=== PATIENT | female | born 1950 | race Caucasian/White ===

== ENCOUNTER → 2020-07-30 10:07 | Outpatient (BNVA) | payer MEDICARE, SELFPAY | PROVIDERS: Family Provider Family Medicine; PCP Family Medicine; Visit Provider Family Medicine | DX: I10 Essential (primary) hypertension (principal) | CPT/HCPCS: 80048; 85025 ==

== ENCOUNTER → 2022-01-13 11:54 | Outpatient (BNVA) | payer MEDICARE, SELFPAY | PROVIDERS: Family Provider Family Medicine; PCP Family Medicine; Visit Provider Family Medicine | DX: I10 Essential (primary) hypertension (principal); N28.9 Disorder of kidney and ureter, unspecified; E03.9 Hypothyroidism, unspecified; M19.90 Unspecified osteoarthritis, unspecified site; I48.20 Chronic atrial fibrillation, unspecified; J44.9 Chronic obstructive pulmonary disease, unspecified; F17.210 Nicotine dependence, cigarettes, uncomplicated; Z68.23 Body mass index [BMI] 23.0-23.9, adult | CPT/HCPCS: 80053; 84443; 85025 ==

== ENCOUNTER 2022-06-05 16:57 | Inpatient (IN) | payer MEDICARE, SELFPAY ==
[2022-06-05] VITALS (8 sets, daily range): BP systolic 115–159; BP diastolic 73–102; PULSE 104–129; RESP 19–22; TEMP 37.2; O2SAT 87–98; BMI 20.7
--- NOTE | 2022-06-05 17:10 | W.ED.SOB ---
Documented by User: Lopez Ellis MD 06/16/22 22:00 HPI - SOB/Dyspnea General: Chief Complaint: COVID symptoms Stated Complaint: SOB, Weakness, Fever N/V/D Time Seen by Provider: 06/05/22 17:09 History of Present Illness: HPI Narrative: Ms. Martel is a 71-year-old lady with significant past medical history of COPD, chronic atrial fibrillation, chronic hypoxic respiratory failure on baseline oxygen intermittently who presents to the emergency department due to shortness of breath and generalized symptoms. She reports sick contacts at approximately 2 weeks ago her family got ill with somewhat typical COVID type symptoms. She has failed to recover. She endorses body aches, fevers, cough, shortness of breath, diarrhea, and generalized malaise. Intensity of symptoms is moderate. Course has persisted. No other specific changes in health, exacerbating, or alleviating factors identified. Onset (ago): week(s) Context: recent illness Timing: constant Severity: moderate Known history of: COPD Review of Systems General: Reports: 10 or more systems reviewed and unremarkable except in HPI and below PFSH ED PFSH: Medical History (Updated 06/16/22 @ 12:41 by Ezio Espinoza MD) Aortic stenosis, moderate Chronic atrial fibrillation COPD (chronic obstructive pulmonary disease) Hypercholesteremia Hypertension Hypoxia Iron deficiency anemia Osteoarthritis (arthritis due to wear and tear of joints) Renal insufficiency Surgical History History of cholecystectomy History of oophorectomy History of total hysterectomy Family History Other Diabetes Social History Smoking and tobacco status: current every day smoker Alcohol intake: never Physical Exam Const: COMMON NORMALS: alert GENERAL APPEARANCE: cooperative, well developed and frail appearing HENMT: COMMON NORMALS: normocephalic and atraumatic HEAD & SCALP: normocephalic and atraumatic Eye: COMMON NORMALS: conjunctivae normal CONJUNCTIVA: Yes conjunctivae normal SCLERA: sclerae normal Neck/C-Spine: COMMON NORMALS: supple GENERAL: Yes trachea midline Resp: EFFORT & INSPECTION: Yes tachypneic AUSCULTATION: diminished lung sounds Cardio: COMMON NORMALS: regular rate and regular rhythm RATE: regular rate RHYTHM: regular rhythm GI: COMMON NORMALS: Soft to palpation PALPATION: Yes Soft to palpation and No Tenderness to palpation present (GI) Extremity: GENERAL: Yes normal exam except as noted and No edema Neuro: COMMON NORMALS: moves all extremities SENSORIUM/ORIENTATION: Yes alert and No Orientation impaired Psych: COMMON NORMALS: mental status grossly normal and Normal thought process present THOUGHT PROCESS: Normal thought process present Course ED course: - Patient was seen and evaluated by me at bedside - Patient placed on cardiac monitors, IV access obtained - Initial evaluation notable for exam as above - Labs and xrays personally interpreted by me -COPD exacerbation treatment ordered - Labs notable for no leukocytosis, near baseline normocytic anemia. Metabolic panel with dehydration and hypokalemia. Viral studies pending. - Imaging notable for right upper lobe pneumonia, no pneumothorax. -Antibiotic ordered. Handed off pending completion of ED evaluation with likely plan to admit Vital Signs: Vital signs: Vital Signs Temperature 98.0 F 06/08/22 14:30 Pulse Rate 55 L 06/08/22 14:30 Respiratory Rate 16 06/08/22 14:30 Blood Pressure 118/64 06/08/22 14:30 Pulse Oximetry 93 06/08/22 14:30 Oxygen Delivery Or thod 06/08/22 12:00 Oxygen Flow Rate 2 06/08/22 11:03 MDM - SOB/Dyspnea Medical Decision Making 71-year-old lady with history of COPD presenting with worsening respiratory symptoms and positive sick contacts. End off pending completion of ED evaluation. Patient presents here with shortness of breath was found to have a pneumonia along with COVID she has chronic history of COPD requiring quietly more oxygen than typical will admit at this time patient has been stable while in the ER. Medical Records I reviewed the patient's medical records. Lab Data I reviewed the patient's lab results. : 06/08/22 06:25 06/08/22 06:25 Labs/Radiology: Radiology Impressions Chest X-Ray 06/05/22 17:16 IMPRESSION: 1. Right upper lobe pneumonia. 2. Otherwise negative examination Laboratory Results WBC 4.9 10^3/uL (4.0-10.0) 06/05/22 17:50 RBC 3.63 10^6/uL (4.1-5.3) L 06/05/22 17:50 Hgb 10.7 g/dL (11.5-15.3) L 06/05/22 17:50 Hct 33.4 % (37.0-47.0) L 06/05/22 17:50 MCV 92.0 fl (81-99) 06/05/22 17:50 MCH 29.5 pg (28.0-34.0) 06/05/22 17:50 MCHC 32.0 g/dL (30.0-36.0) 06/05/22 17:50 RDW 15.2 % (12.1-15.1) H 06/05/22 17:50 Plt Count 273 10^3/cmm (130-400) 06/05/22 17:50 MPV 9.5 fL (7.4-10.4) 06/05/22 17:50 Neut % (Auto) 64.5 % 06/05/22 17:50 Lymph % (Auto) 26.3 % 06/05/22 17:50 Powell % (Auto) 7.8 % 06/05/22 17:50 Eos % (Auto) 0.6 % 06/05/22 17:50 Baso % (Auto) 0.2 % 06/05/22 17:50 Neut # (Auto) 3.14 10^3/uL (1.8-7.7) 06/05/22 17:50 Lymph # (Auto) 1.3 10^3/uL (0.8-4.8) 06/05/22 17:50 Powell # (Auto) 0.4 10^3/uL (0.2-0.9) 06/05/22 17:50 Eos # (Auto) 0.0 10^3/uL (0.0-0.8) 06/05/22 17:50 Baso # (Auto) 0.0 10^3/uL (0.0-0.1) 06/05/22 17:50 Nucleated RBC % (auto) 0 % 06/05/22 17:50 Nucleated RBCs # 0.0 /100WBC 06/05/22 17:50 Sodium 139 mmol/L (136-145) 06/05/22 17:50 Potassium 3.0 mmol/L (3.5-5.1) L 06/05/22 17:50 Chloride 102 mmol/L (98-107) 06/05/22 17:50 Carbon Dioxide 23 mmol/L (22-29) 06/05/22 17:50 Anion Gap 17.0 (5-19) 06/05/22 17:50 BUN 19 mg/dL (8-23) 06/05/22 17:50 Creatinine 1.3 mg/dL (0.5-0.9) H 06/05/22 17:50 GFR Calculation 40.6 mL/min (90-130) L 06/05/22 17:50 Glucose 103 mg/dL (65-115) 06/05/22 17:50 Estimat Average Glucose 120 06/05/22 17:50 Hemoglobin A1c 5.8 % (4.0-6.0) 06/05/22 17:50 Calculated Osmolality 291 mOsm/kg (285-295) 06/05/22 17:50 Lactate 1.6 mmol/L (0.5-2.2) 06/05/22 17:50 Calcium 8.4 mg/dL (8.5-10.5) L 06/05/22 17:50 Total Bilirubin 0.2 mg/dL (0.15-1.2) 06/05/22 17:50 AST 21 U/L (0-32) 06/05/22 17:50 ALT 9 U/L (0-33) 06/05/22 17:50 Alkaline Phosphatase 84 U/L (35-105) 06/05/22 17:50 C-Reactive Protein 60.9 mg/L (0.0-4.9) H 06/05/22 17:50 NT-Pro-B Natriuret Pep 2012 pg/mL (0-125) H 06/05/22 17:50 Total Protein 7.9 g/dL (6.6-8.7) 06/05/22 17:50 Albumin 3.6 g/dL (3.5-5.2) 06/05/22 17:50 Globulin 4.3 g/dL (1.3-4.6) 06/05/22 17:50 Procalcitonin 0.23 ng/mL (0-0.5) 06/05/22 17:50 Procalcitonin 0.24 ng/mL (0-0.5) 06/05/22 17:50 TSH 1.26 uIU/mL (0.27-4.20) 06/05/22 17:50 SARS-CoV-2 Ag (Rapid) Positive (Negative) H 06/05/22 17:50 Discharge Plan Discharge Patient Disposition: Admitted As Inpatient Admit Provider: Jeferson Killian Clinical Impression: Acute exacerbation of chronic obstructive pulmonary disease, Close exposure to severe acute respiratory syndrome coronavirus 2 (SARS-CoV-2), Pneumonia, Acute on chronic respiratory failure with hypoxia Condition: Stable Discharge Diet: Cardiac Discharge Activity: Increase activity as tolerated and Oxygen as instructed Coding Level of Care Code ED Dispute Resolution Analyst for [facility] Fwd Exam Comprehensive Documented by User: Trevin Foster MD 06/05/22 19:17 HPI - SOB/Dyspnea General: Chief Complaint: COVID symptoms Stated Complaint: SOB, Weakness, Fever N/V/D Time Seen by Provider: 06/05/22 17:09 [facility] ED PFSH: Medical History (Updated 06/16/22 @ 12:41 by Ezio Espinoza MD) Aortic stenosis, moderate Chronic atrial fibrillation COPD (chronic obstructive pulmonary disease) Hypercholesteremia Hypertension Hypoxia Iron deficiency anemia Osteoarthritis (arthritis due to wear and tear of joints) Renal insufficiency Surgical History History of cholecystectomy History of oophorectomy History of total hysterectomy Family History Other Diabetes Social History Smoking and tobacco status: current every day smoker Alcohol intake: never Course Vital Signs: Vital signs: Vital Signs Temperature 98.0 F 06/08/22 14:30 Pulse Rate 55 L 06/08/22 14:30 Respiratory Rate 16 06/08/22 14:30 Blood Pressure 118/64 06/08/22 14:30 Pulse Oximetry 93 06/08/22 14:30 Oxygen Delivery Me thod 06/08/22 12:00 Oxygen Flow Rate 2 06/08/22 11:03 MDM - SOB/Dyspnea Medical Decision Making Patient presents here with shortness of breath was found to have a pneumonia along with COVID she has chronic history of COPD requiring quietly more oxygen than typical will admit at this time patient has been stable while in the ER. Lab Data : 06/08/22 06:25 06/08/22 06:25 Labs/Radiology: Radiology Impressions Chest X-Ray 06/05/22 17:16
--- NOTE | 2022-06-05 17:16 | XRR_ITS ---
PROCEDURE INFORMATION: Exam: XR Chest Exam date and time: 06/05/2022 5:26 PM Age: 71 years old Clinical indication: Shortness of breath; Additional info: SOB TECHNIQUE: Imaging protocol: Radiologic exam of the chest. Views: 1 view. COMPARISON: CR Chest 2 views* [id number] 08/11/2019 11:10 AM FINDINGS: Lungs: There is a parenchymal density in the right upper lobe consistent with pneumonia. Left lower lobe interstitial congestion is seen increased since prior. The lungs are otherwise clear. Pleural spaces: Unremarkable. No pleural effusion. No pneumothorax. Heart/Mediastinum: Unremarkable. No cardiomegaly. Bones/joints: Unremarkable. XR/XR chest 1V portable [id number] IMPRESSION: 1. Right upper lobe pneumonia. 2. Otherwise negative examination
[2022-06-05] MEDS: ipratropium-albuterol 3 mL Neb INHALATION (17:48)
[2022-06-05 18:01] LABS: Basophils % 0.2 %; Eosinophils % 0.6 %; Hematocrit 33.4 % (37.0-47.0); Hemoglobin 10.7 g/dL (11.5-15.3); Lymphocytes # 1.3 10^3/uL (0.8-4.8); Lymphocytes % 26.3 %; Mean Corpuscular Hemoglobin 29.5 pg (28.0-34.0); Mean Platelet Volume 9.5 fL (7.4-10.4); Monocytes # 0.4 10^3/uL (0.2-0.9); Monocytes % 7.8 %; Neutrophils # 3.14 10^3/uL (1.8-7.7); Neutrophils % 64.5 %; Nucleated Red Blood Cells % 0 %; Platelet Count 273 10^3/cmm (130-400); Red Blood Count 3.63 10^6/uL (4.1-5.3); Red Cell Distribution Width 15.2 % (12.1-15.1); White Blood Count 4.9 10^3/uL (4.0-10.0)
[2022-06-05 18:25] LABS: SARS Covid-2 Antigen Positive (Negative)
[2022-06-05 18:32] LABS: Lactate (Lactic Acid level) 1.6 mmol/L (0.5-2.2)
[2022-06-05 18:43] LABS: NT Pro B Type Natriuretic Pept 2012 pg/mL (0-125); Procalcitonin 0.23 ng/mL (0-0.5)
[2022-06-05] MEDS: sodium chloride 0.9% 500 ML 999 ML IV (18:46)
--- NOTE | 2022-06-05 18:51 | PC.NURSE ---
Report given to SARAH Cheema
[2022-06-05 18:54] LABS: Alanine Aminotransferase 9 U/L (0-33); Albumin Level 3.6 g/dL (3.5-5.2); Alkaline Phosphatase 84 U/L (35-105); Aspartate Amino Transferase 21 U/L (0-32); Blood Urea Nitrogen 19 mg/dL (8-23); C Reactive Protein 60.9 mg/L (0.0-4.9); Calcium 8.4 mg/dL (8.5-10.5); Carbon Dioxide 23 mmol/L (22-29); Chloride 102 mmol/L (98-107); Globulin 4.3 g/dL (1.3-4.6); Glomerular Filtration Rate 40.6 mL/min (90-130); Glucose 103 mg/dL (65-115); Osmolality Calculated 291 mOsm/kg (285-295); Sodium 139 mmol/L (136-145); Total Bilirubin 0.2 mg/dL (0.15-1.2); Total Protein 7.9 g/dL (6.6-8.7)
[2022-06-05] MEDS: doxycycline 100 MG in sodium chloride 0.9% (plus) 100 ML IV (18:56)
[2022-06-05] MEDS: levoFLOXacin 750 mg Tablet PO (18:57)
--- NOTE | 2022-06-05 19:21 | PM.HP ---
Providers/Chief Complaint Primary Care Provider: Ezio Espinoza MD Chief Complaint: SOB, Weakness, Fever N/V/D History of Present Illness Senia Martel is a 71 year old female who is an active smoker, quit 3 weeks ago, history of hypertension, A. fib, chronic anticoagulation, oxygen dependent COPD uses 2 L of oxygen presented to hospital worsening of shortness of breath. Patient is stating that she has been exposed to multiple family members who are tested positive for COVID-19. She is vaccinated with [employer]. Her symptoms started roughly 2 weeks ago with shortness of breath which has gradually gotten worse, noticed fever 102, 3times in last 2 weeks, she has been gradually getting worse but not to the point she is using a wheelchair, her oxygen requirement has not gotten worse, rest other symptoms are diarrhea, dehydration. She is denying chest pain, headache, strokelike features At the time of my evaluation patient is on 4 L of oxygen A. fib RVR I have given her Cardizem 10 mg IV push She is hypertensive No leukocytosis no signs of sepsis, she is hypokalemic, SHAVONNE X-ray showing superimposed pneumonia positive COVID-19 antigen Review of Systems Const: Reports: fever(s), chills, body aches and fatigue Eyes: Denies: change in vision ENMT: Denies: throat pain Card: Reports: dyspnea on exertion and orthopnea; Denies: chest pain Resp: Reports: dyspnea GI: Reports: diarrhea; Denies: abdominal pain : Denies: flank pain Musc: Denies: neck pain Skin/Breast: Denies: rash Neuro: Denies: headache(s) Psych: Reports: anxiety Endo: Denies: polyuria Daniel/Lymph: Denies: easy bruising All/Imm: Denies: urticaria Medications/Allergies Home Medications Medication Instructions Recorded Confirmed Last Taken Type tiotropium 2.5 mcg-olodaterol 2.5 2 puff inhalation DAILY #4 grams 10/07/21 06/05/22 06/05/22 Rx mcg/actuation mist for inhalation (Stiolto Respimat) amlodipine 5 mg tablet 5 mg PO DAILY 06/05/22 06/05/22 06/04/22 History cholecalciferol (vitamin D3) 50 50 mcg PO DAILY 06/05/22 06/05/22 06/04/22 History mcg (2,000 unit) capsule (Vitamin D3) losartan 100 mg tablet 100 mg PO DAILY 06/05/22 06/05/22 06/04/22 History metoprolol tartrate 25 mg tablet 25 mg PO BID 06/05/22 06/05/22 06/04/22 History rivaroxaban 20 mg tablet (Xarelto) 20 mg PO DAILY 06/05/22 06/05/22 06/04/22 History Allergies Allergy/AdvReac Type Severity Reaction Status Date / Time atorvastatin [From Lipitor] Allergy cough Verified 06/05/22 17:51 PFSH Acute PFSH: Medical History Aortic stenosis, moderate Chronic atrial fibrillation COPD (chronic obstructive pulmonary disease) Hypercholesteremia Hypertension Hypoxia Iron deficiency anemia Osteoarthritis (arthritis due to wear and tear of joints) Renal insufficiency Surgical History History of cholecystectomy History of oophorectomy History of total hysterectomy Family History Other Diabetes Social History Smoking and tobacco status: current every day smoker Alcohol intake: never Vitals/I&O/Wt Last Vital Signs Temp 98.9 F 06/05/22 17:02 Pulse 125 H 06/05/22 18:33 Resp 20 H 06/05/22 17:49 BP 159/100 06/05/22 18:33 Pulse Ox 96 06/05/22 18:33 O2 Del Method 06/05/22 18:33 O2 Flow Rate 4 06/05/22 17:49 Physical Exam Narrative: Pleasant cooperative female Currently on 4 L Positive wheezing Currently looks dehydrated Dry cracked lips Awake and alert Nonfocal neuro exam A. fib RVR Heart rate in 140s Hypertensive Awake and alert Nonfocal neuro exam Abdomen soft Pleasant cooperative Data : 06/05/22 17:50 06/05/22 17:50 A&P Assessment and plan (1) Acute exacerbation of chronic obstructive pulmonary disease: Status: Acute (2) Pneumonia: Status: Acute (3) Acute on chronic respiratory failure with hypoxia: Status: Acute (4) Chronic atrial fibrillation: Status: Acute (5) Hypertension: Status: Acute Qualifiers: Hypertension type: essential hypertension Qualified Code(s): I10 - Essential (primary) hypertension Plan Bacterial superimposed infection with COVID-19 Start remdesivir, Decadron Ceftriaxone, azithromycin Check inflammatory markers Currently patient is on 4 L At baseline uses 2 L, A. fib RVR Given Cardizem 10 mg IV push, will increase the dose of metoprolol, add Cardizem 30 mg every 6 hours Continue Xarelto Check magnesium level, TSH Dehydrated Gentle fluid hydration Acute on chronic kidney disease Related to dehydration Despite improvement with IV fluids Patient endorsing poor urine output Acute COPD exacerbation due to pneumonia Currently on 4 L Active wheezing She will get Decadron Hypertensive: Holding losartan because of creatinine I have increased the dose of metoprolol, added Cardizem monitor blood pressure for now Patient wants a trial of CPR or defibrillation or intubation if she gets worse Her family will make decision for her in case of further worsening Cardiac diet DVT prophylaxis covered with Xarelto Attestations Medical Necessity Statement*: Anticipating more than 2 midnights for management of pneumonia, COVID-19, dehydration A. fib RVR Time Spent in Patient Care: 40 Coding Level of Care Code Acute Division Controller for [facility] Diagnoses Acute exacerbation of chronic obstructive pulmonary disease J44.1 Pneumonia J18.9 Acute on chronic respiratory failure with hypoxia J96.21 Chronic atrial fibrillation I48.20 Hypertension I10 Hypertension type: essential hypertension
[2022-06-05] MEDS: dilTIAZem 5 mg/mL SDV 5 mL 10 MG IVP (19:41)
[2022-06-05 19:55] LABS: Procalcitonin 0.24 ng/mL (0-0.5)
[2022-06-05 20:46] LABS: Thyroid Stimulating Hormone 1.26 uIU/mL (0.27-4.20)
[2022-06-05 21:42] LABS: Estmated Average Glucose 120; Hemoglobin A1C 5.8 % (4.0-6.0)
[2022-06-05] MEDS: metoprolol tartrate 25 mg Tablet 50 MG PO (23:12)
[2022-06-05] MEDS: dilTIAZem 30 mg Tablet PO (23:12)
[2022-06-05] MEDS: potassium chloride ER 20 mEq Tablet 40 MEQ PO (23:12)
[2022-06-05] MEDS: remdesivir 200 MG in sodium chloride 0.9% (100 ml) 60 ML 100 MG IV (23:14)
[2022-06-05] MEDS: sodium chloride 0.9% 1,000 ML 30 ML IV (23:17)
[2022-06-06] VITALS (11 sets, daily range): BP systolic 116–137; BP diastolic 57–86; PULSE 52–98; RESP 15–18; TEMP 36.5–37.2; O2SAT 89–99
[2022-06-06 02:41] LABS: Hemoglobin 9.3 g/dL (11.5-15.3); Lymphocytes # 0.6 10^3/uL (0.8-4.8); Lymphocytes % 16.6 %; Mean Corpuscular Hemoglobin 29.2 pg (28.0-34.0); Mean Platelet Volume 9.7 fL (7.4-10.4); Monocytes # 0.1 10^3/uL (0.2-0.9); Monocytes % 2.4 %; Neutrophils # 3.01 10^3/uL (1.8-7.7); Neutrophils % 80.5 %; Nucleated Red Blood Cells % 0 %; Platelet Count 214 10^3/cmm (130-400); Red Blood Count 3.19 10^6/uL (4.1-5.3); Red Cell Distribution Width 15.4 % (12.1-15.1); White Blood Count 3.7 10^3/uL (4.0-10.0)
[2022-06-06 04:56] LABS: ABG PCO2 43.1 mmHg (35-45); ABG PH Result 7.38 (7.35-7.45); Base Excess ABG 0.1 mmol/L (-2.0-2.0); Blood Gas Operator Identificat JB; Blood Gas Sample Site Brachial, right; Blood Gas Sample Type Arterial; HCO3 ABG 25.5 mmol/L (22-26); Oxygen Device NC
[2022-06-06] MEDS: dilTIAZem 30 mg Tablet PO ×4 (05:34→21:58)
[2022-06-06 06:20] LABS: Blood Urea Nitrogen 18 mg/dL (8-23); Carbon Dioxide 24 mmol/L (22-29); Chloride 103 mmol/L (98-107); Glomerular Filtration Rate 49.2 mL/min (90-130); Glucose 126 mg/dL (65-115); Magnesium 1.8 mg/dL (1.7-2.3); Osmolality Calculated 291 mOsm/kg (285-295); Phosphorus 3.3 mg/dL (2.5-4.5); Sodium 139 mmol/L (136-145)
[2022-06-06 06:47] LABS: Glucose Point of Care 132 mg/dL (70-110)
[2022-06-06] MEDS: ipratropium-albuterol 3 mL Neb INHALATION ×2 (09:33→20:44)
[2022-06-06] MEDS: sennosides-docusate Tablet 1 TAB PO (09:38)
[2022-06-06] MEDS: azithromycin 250 mg Tablet 500 MG PO (09:38)
[2022-06-06] MEDS: amlodipine 5 mg Tablet 10 MG PO (09:38)
[2022-06-06] MEDS: dexamethasone 4 mg Tablet 6 MG PO (09:38)
[2022-06-06] MEDS: ascorbic acid 500 mg Tablet PO (09:39)
[2022-06-06] MEDS: zinc gluconate 50 mg Tablet PO (09:39)
[2022-06-06] MEDS: cefTRIAXone 1,000 MG in sodium chloride 0.9% (plus) 50 ML 100 MG IV (09:39)
[2022-06-06] MEDS: metoprolol tartrate 25 mg Tablet 50 MG PO ×2 (09:39→17:45)
[2022-06-06] MEDS: rivaroxaban 10 mg Tablet 20 MG PO (09:39)
--- NOTE | 2022-06-06 09:58 | PC.CHAP ---
Pastoral Care Encounter/Spiritual Assessment Type of Contact [] Declined dramatic reader visit [] Patient/Family/Request visit [] Outpatient visit [] Follow-up visit [] Physician referral [] Code/Alert [x] Routine visit [] Staff referral [] Actively dying [] Patient sleeping [] Family support [] [] Out of room [] Palliative care [] [] Receiving care in room [] Pre-surgical visit [] Trauma [] Long length of stay [] ICU visit [x] Other:covid Relational/Emotional Strength [] Patient feels connected with others/family/visitors/staff [] Distress [] Loneliness/isolation [] Abandonment Spirituality of Patient [] Person of Cassandra [] Attends Yazidism of their Cassandra [] Believes in Prayer [] Reads Bible or Faith materials [] There are Spiritual issues to be addressed Layout Operator Interventions [] Prayer [] Active listening [] Non-anxious presence [] Spiritual/emotional support [] Crisis/trauma care [] Spiritual counseling [] Bereavement support [] Provided bereavement packet [] Provided Bible/devotional materials [] Provided toy/stuffed animal, coloring book to patient or family member [] Provided Communion [] Anointing/[place] [] Salvation [] Completed spiritual assessment [] Other: Impact on Illness or Injury [] Angry [] Fearful [] Anxious [] Often cries [] Exhaustion [] Unable to work [] Unable to attend baptist [] Unable to walk/stand [] Unable to read [] Unable to drive [] Unable to eat/drink [] Unable to sleep [] Unable to be with family [] Patient intubated [] Other: Summary Time spent with patient
[2022-06-06 12:21] LABS: Glucose Point of Care 135 mg/dL (70-110)
[2022-06-06 17:07] LABS: Glucose Point of Care 146 mg/dL (70-110)
--- NOTE | 2022-06-06 19:17 | P.PN_ITS ---
Subjective Subjective: She reports she is coughing, not bringing up much phlegm. She is having some diarrhea. Vitals/I&O/Wt Last Vital Signs Temp 98.3 F 06/06/22 16:00 Pulse 64 06/06/22 16:00 Resp 16 06/06/22 16:00 BP 126/77 06/06/22 16:00 Pulse Ox 99 06/06/22 16:00 O2 Del Method 06/06/22 16:00 O2 Flow Rate 3.5 06/06/22 09:35 06/06/22 06/06/22 06/06/22 06:59 14:59 22:59 Intake Total 100 / 700 290 / 290 240 / 530 Balance 100 / 700 290 / 290 240 / 530 Weight last 48 hrs Weight 54.97 kg Physical Exam Const: COMMON NORMALS: patient oriented x3 and alert GENERAL APPEARANCE: cooperative ORIENTATION/CONSCIOUSNESS: Yes awake HENMT: COMMON NORMALS: oropharynx normal Neck/C-Spine: COMMON NORMALS: no JVD Resp: COMMON NORMALS: normal respiratory effort and clear to auscultation bilaterally AUSCULTATION: clear to auscultation bilaterally Cardio: COMMON NORMALS: no JVD, regular rhythm, S1 normal heart sound present, S2 normal heart sound present and No murmurs present (Cardio) RHYTHM: regular rhythm HEART SOUNDS: S1 normal heart sound present and S2 normal heart sound present GI: COMMON NORMALS: Normal to inspection, nondistended, normoactive bowel sounds present, Soft to palpation and non-tender PALPATION: Yes Soft to palpation Extremity: COMMON NORMALS: no joint enlargement and no pedal edema Neuro: COMMON NORMALS: patient oriented x3 and moves all extremities SENSORIUM/ORIENTATION: Yes alert Skin: COMMON NORMALS: no rashes or lesions noted GENERAL SKIN EXAM: no rashes or lesions noted Data : 06/06/22 01:40 06/06/22 05:08 Micro: Microbiology 06/05/22 23:35 MRSA Culture - Final Nose 06/05/22 23:54 Bacterial Antigens - Final Urine,Voided 06/05/22 19:14 Blood Culture - Preliminary Blood SPECIMEN COLLECTED 06/05/22 19:10 Blood Culture - Preliminary Blood SPECIMEN COLLECTED A&P Assessment and plan (1) Pneumonia: COVID-19 viral pneumonia with superimposed bacterial pneumonia. Continue remdesivir, Decadron. Continue antibiotic coverage. Antitussives. Continue Xarelto. Urine bacterial antigens negative. Add antigens for Legionella. MRSA PCR is ne gative. Sputum culture. Status: Acute (2) Acute on chronic respiratory failure with hypoxia: She is showing gradual improvement. Required up to 4 L nasal cannula oxygen, currently down to 3.5 L.She is usually on 2 L nasal cannula oxygen, Status: Acute (3) Acute exacerbation of chronic obstructive pulmonary disease: Continue steroid, antibiotic, breathing treatments. Oxygen support, wean down as tolerating. Status: Acute (4) Chronic atrial fibrillation: Initially A. fib with RVR, heart rate has improved. Continue Cardizem, Xarelto. Replace magnesium. Status: Acute (5) Hypertension: Losartan on hold. Continue Cardizem, metoprolol. Status: Acute Qualifiers: Hypertension type: essential hypertension Qualified Code(s): I10 - Essential (primary) hypertension Plan Dehydrated: Received gentle fluid hydration. Stop IVF. P.o. intake as tolerating. Acute on chronic kidney disease: Improved with fluid challenge. Hold losartan. Avoid nephrotoxins. Reassess renal function. Patient wants a trial of CPR or defibrillation or intubation if she gets worse Her family will make decision for her in case of further worsening Cardiac diet DVT prophylaxis covered with Xarelto Attestations Medical Necessity Statement*: Continue admission for assessment management of acute on chronic hypoxic respiratory failure, COVID-pneumonia, superimposed bacterial pneumonia, COPD exacerbation. Coding Level of Care Code Acute Medical Technicians for [facility] Diagnoses Pneumonia J18.9 Acute on chronic respiratory failure with hypoxia J96.21 Acute exacerbation of chronic obstructive pulmonary disease J44.1 Chronic atrial fibrillation I48.20 Hypertension I10 Hypertension type: essential hypertension
[2022-06-06 20:32] LABS: Glucose Point of Care 194 mg/dL (70-110)
[2022-06-06] MEDS: remdesivir 100 MG in sodium chloride 0.9% (100 ml) 100 ML IV (21:58)
[2022-06-06 22:28] LABS: Add Urine Microscopic? NO; Charge for UA Resulting for Rev
[2022-06-06 22:33] LABS: Bilirubin Urine Neg (Negative); Blood Urine Neg (Negative); Glucose Urine UA Norm (Normal); Ketones Urine Negative (Negative); Leukocyte Esterase Urine Negative (Negative); Nitrate Urine Negative (Negative); Protein Urine Neg (Negative); Specific Gravity, Urine 1.015 (1.005-1.030); Urine Appearance Clear (CLEAR); Urine Color Yellow (Yellow); Urobilinogen Urine Neg (Negative); pH Urine 5 (5-7)
[2022-06-06] MEDS: guaiFENesin-dextromethorphan UDC 10 mL 5 ML PO (23:27)
[2022-06-07] VITALS (11 sets, daily range): BP systolic 114–136; BP diastolic 55–63; PULSE 51–76; RESP 14–20; TEMP 36.6–36.8; O2SAT 95–98
[2022-06-07] MEDS: dilTIAZem 30 mg Tablet PO ×4 (04:05→22:14)
[2022-06-07 05:05] LABS: Hematocrit 26.3 % (37.0-47.0); Hemoglobin 8.5 g/dL (11.5-15.3); Lymphocytes # 0.8 10^3/uL (0.8-4.8); Lymphocytes % 18.3 %; Mean Corpuscular HGB Conc 32.3 g/dL (30.0-36.0); Mean Corpuscular Hemoglobin 29.6 pg (28.0-34.0); Mean Corpuscular Volume 91.6 fl (81-99); Mean Platelet Volume 9.7 fL (7.4-10.4); Monocytes # 0.3 10^3/uL (0.2-0.9); Monocytes % 7.2 %; Neutrophils # 3.39 10^3/uL (1.8-7.7); Neutrophils % 73.8 %; Nucleated Red Blood Cells % 0 %; Platelet Count 251 10^3/cmm (130-400); Red Blood Count 2.87 10^6/uL (4.1-5.3); Red Cell Distribution Width 15.8 % (12.1-15.1); White Blood Count 4.6 10^3/uL (4.0-10.0)
[2022-06-07 05:20] LABS: D Dimer 1.25 ug/mIFEU (0-0.59)
[2022-06-07 05:31] LABS: Alanine Aminotransferase 7 U/L (0-33); Albumin Level 3.1 g/dL (3.5-5.2); Alkaline Phosphatase 65 U/L (35-105); Anion Gap 14.9 (5-19); Aspartate Amino Transferase 13 U/L (0-32); Blood Urea Nitrogen 33 mg/dL (8-23); Calcium 8.5 mg/dL (8.5-10.5); Carbon Dioxide 24 mmol/L (22-29); Chloride 106 mmol/L (98-107); Globulin 3.6 g/dL (1.3-4.6); Glomerular Filtration Rate 44.5 mL/min (90-130); Glucose 126 mg/dL (65-115); Osmolality Calculated 301 mOsm/kg (285-295); Potassium 3.9 mmol/L (3.5-5.1); Sodium 141 mmol/L (136-145); Total Bilirubin 0.2 mg/dL (0.15-1.2); Total Protein 6.7 g/dL (6.6-8.7)
[2022-06-07 06:22] LABS: Glucose Point of Care 151 mg/dL (70-110)
[2022-06-07] MEDS: ipratropium-albuterol 3 mL Neb INHALATION ×2 (08:39→19:51)
[2022-06-07] MEDS: azithromycin 250 mg Tablet 500 MG PO (08:53)
[2022-06-07] MEDS: insulin lispro 100 unit/1 mL SUBCUT ×2 (08:54→11:16)
[2022-06-07] MEDS: amlodipine 5 mg Tablet 10 MG PO (08:54)
[2022-06-07] MEDS: rivaroxaban 10 mg Tablet 20 MG PO (08:54)
[2022-06-07] MEDS: cefTRIAXone 1,000 MG in sodium chloride 0.9% (plus) 50 ML 100 MG IV (08:54)
[2022-06-07] MEDS: dexamethasone 4 mg Tablet 6 MG PO (08:55)
[2022-06-07] MEDS: zinc gluconate 50 mg Tablet PO (08:55)
[2022-06-07] MEDS: benzonatate 100 mg Capsule PO ×2 (08:56→17:16)
[2022-06-07] MEDS: ascorbic acid 500 mg Tablet PO (08:56)
[2022-06-07] MEDS: metoprolol tartrate 25 mg Tablet 50 MG PO ×2 (08:56→17:16)
[2022-06-07 11:01] LABS: Glucose Point of Care 153 mg/dL (70-110)
--- NOTE | 2022-06-07 11:05 | P.PN_ITS ---
Subjective Subjective: She is overall doing slightly better. She is still coughing, productive cough. So far diarrhea has subsided. No chest pain or pressure. No headache, no nausea or vomiting. She has ambulated to the restroom. Vitals/I&O/Wt Last Vital Signs Temp 98.3 F 06/07/22 07:57 Pulse 70 06/07/22 08:39 Resp 18 06/07/22 08:39 BP 123/58 06/07/22 07:57 Pulse Ox 98 06/07/22 08:39 O2 Del Method 06/07/22 08:39 O2 Flow Rate 3 06/07/22 08:39 06/06/22 06/07/22 06/07/22 22:59 06:59 14:59 Intake Total 1872 / 2162 600 / 2762 290 / 290 Balance 1872 / 2162 600 / 2762 290 / 290 Weight last 48 hrs Weight 58.649 kg Weight 54.97 kg Physical Exam Const: COMMON NORMALS: patient oriented x3 and alert GENERAL APPEARANCE: cooperative ORIENTATION/CONSCIOUSNESS: Yes awake HENMT: COMMON NORMALS: oropharynx normal Neck/C-Spine: COMMON NORMALS: no JVD Resp: COMMON NORMALS: normal respiratory effort and clear to auscultation bilaterally AUSCULTATION: clear to auscultation bilaterally Cardio: COMMON NORMALS: no JVD, regular rhythm, S1 normal heart sound present, S2 normal heart sound present and No murmurs present (Cardio) RHYTHM: regular rhythm HEART SOUNDS: S1 normal heart sound present and S2 normal heart sound present GI: COMMON NORMALS: Normal to inspection, nondistended, normoactive bowel sounds present, Soft to palpation and non-tender PALPATION: Yes Soft to palpation Extremity: COMMON NORMALS: no joint enlargement and no pedal edema Neuro: COMMON NORMALS: patient oriented x3 and moves all extremities SENSORIUM/ORIENTATION: Yes alert Skin: COMMON NORMALS: no rashes or lesions noted GENERAL SKIN EXAM: no rashes or lesions noted Data : 06/07/22 04:49 06/07/22 04:49 Micro: Microbiology 06/06/22 22:10 Legionella Urinary Antigen - Final Urine,Voided 06/05/22 19:14 Blood Culture - Preliminary Blood NEGATIVE TO DATE 06/05/22 19:10 Blood Culture - Preliminary Blood NEGATIVE TO DATE 09/01/22 23:35 MRSA Culture - Final Nose 06/05/22 23:54 Bacterial Antigens - Final Urine,Voided A&P Assessment and plan (1) Pneumonia: Showing gradual improvement. Still on 3 L nasal cannula oxygen. At home on 2 L. Continue Melissia, Decadron. Continue treatment of superimposed bacterial pneumonia. COPD exacerbation. If continues to improve, consideration may be given to perhaps cautiously returning home tomorrow. COVID-19 viral pneumonia with superimposed bacterial pneumonia. Continue remdesivir, Decadron. Continue antibiotic coverage. Antitussives. Continue Xarelto. Urine bacterial antigens negative. Negative antigens for Legionella. MRSA PCR is negative. Sputum culture. D-dimer abnormal, recheck level. Status: Acute (2) Acute on chronic respiratory failure with hypoxia: She is showing gradual improvement. Required up to 4 L nasal cannula oxygen, currently down to 3.5 L.She is usually on 2 L nasal cannula oxygen, Status: Acute (3) Acute exacerbation of chronic obstructive pulmonary disease: Continue steroid, antibiotic, breathing treatments. Oxygen support, wean down as tolerating. Status: Acute (4) Chronic atrial fibrillation: Initially A. fib with RVR, heart rate has improved. Continue Cardizem, Xarelto. Replace magnesium. Status: Acute (5) Hypertension: Losartan on hold. Continue Cardizem, metoprolol. Status: Acute Qualifiers: Hypertension type: essential hypertension Qualified Code(s): I10 - Essential (primary) hypertension Plan Dehydrated: Received gentle fluid hydration. Stop IVF. P.o. intake as tolerating. Acute on chronic kidney disease: Improved with fluid challenge. Hold losartan. Avoid nephrotoxins. Reassess renal function. Patient wants a trial of CPR or defibrillation or intubation if she gets worse Her family will make decision for her in case of further worsening Cardiac diet DVT prophylaxis covered with Xarelto Attestations Medical Necessity Statement*: Continue admission for assessment of management of severe COVID-19 with superimposed bacterial pneumonia, COPD exacerbation. Coding Level of Care Code Acute Financial Reporting Advisor for [facility] Fwd Exam Comprehensive Diagnoses Pneumonia J18.9 Acute on chronic respiratory failure with hypoxia J96.21 Acute exacerbation of chronic obstructive pulmonary disease J44.1 Chronic atrial fibrillation I48.20 Hypertension I10 Hypertension type: essential hypertension
[2022-06-07 17:00] LABS: Glucose Point of Care 136 mg/dL (70-110)
[2022-06-07 20:40] LABS: Glucose Point of Care 143 mg/dL (70-110)
[2022-06-07] MEDS: remdesivir 100 MG in sodium chloride 0.9% (100 ml) 100 ML IV (22:14)
[2022-06-07] MEDS: guaiFENesin-dextromethorphan UDC 10 mL 5 ML PO (22:17)
[2022-06-08] VITALS (8 sets, daily range): BP systolic 118–135; BP diastolic 58–68; PULSE 55–69; RESP 16–18; TEMP 36.5–37.5; O2SAT 86–97
[2022-06-08] MEDS: dilTIAZem 30 mg Tablet PO ×2 (05:15→10:41)
[2022-06-08 06:40] LABS: Hematocrit 28.4 % (37.0-47.0); Hemoglobin 8.9 g/dL (11.5-15.3); Lymphocytes # 0.9 10^3/uL (0.8-4.8); Lymphocytes % 13.8 %; Mean Corpuscular HGB Conc 31.3 g/dL (30.0-36.0); Mean Corpuscular Hemoglobin 29.3 pg (28.0-34.0); Mean Corpuscular Volume 93.4 fl (81-99); Mean Platelet Volume 9.5 fL (7.4-10.4); Monocytes # 0.3 10^3/uL (0.2-0.9); Monocytes % 5.2 %; Neutrophils # 4.91 10^3/uL (1.8-7.7); Neutrophils % 79.9 %; Nucleated Red Blood Cells % 0 %; Platelet Count 308 10^3/cmm (130-400); Red Blood Count 3.04 10^6/uL (4.1-5.3); Red Cell Distribution Width 15.9 % (12.1-15.1); White Blood Count 6.2 10^3/uL (4.0-10.0)
[2022-06-08 07:21] LABS: Alanine Aminotransferase 11 U/L (0-33); Albumin Level 2.8 g/dL (3.5-5.2); Alkaline Phosphatase 66 U/L (35-105); Anion Gap 12.2 (5-19); Aspartate Amino Transferase 20 U/L (0-32); Blood Urea Nitrogen 35 mg/dL (8-23); Calcium 8.4 mg/dL (8.5-10.5); Carbon Dioxide 25 mmol/L (22-29); Chloride 107 mmol/L (98-107); Globulin 3.6 g/dL (1.3-4.6); Glomerular Filtration Rate 62.1 mL/min (90-130); Glucose 118 mg/dL (65-115); Osmolality Calculated 299 mOsm/kg (285-295); Potassium 4.2 mmol/L (3.5-5.1); Sodium 140 mmol/L (136-145); Total Bilirubin 0.2 mg/dL (0.15-1.2); Total Protein 6.4 g/dL (6.6-8.7)
[2022-06-08 07:57] LABS: Glucose Point of Care 132 mg/dL (70-110)
[2022-06-08] MEDS: zinc gluconate 50 mg Tablet PO (08:51)
[2022-06-08] MEDS: azithromycin 250 mg Tablet 500 MG PO (08:51)
[2022-06-08] MEDS: rivaroxaban 10 mg Tablet 20 MG PO (08:52)
[2022-06-08] MEDS: amlodipine 5 mg Tablet 10 MG PO (08:52)
[2022-06-08] MEDS: sennosides-docusate Tablet 1 TAB PO (08:52)
[2022-06-08] MEDS: benzonatate 100 mg Capsule PO (08:52)
[2022-06-08] MEDS: metoprolol tartrate 25 mg Tablet 50 MG PO (08:52)
[2022-06-08] MEDS: dexamethasone 4 mg Tablet 6 MG PO (08:52)
[2022-06-08] MEDS: ascorbic acid 500 mg Tablet PO (08:52)
[2022-06-08] MEDS: cefTRIAXone 1,000 MG in sodium chloride 0.9% (plus) 50 ML 100 MG IV (08:54)
[2022-06-08] MEDS: ipratropium-albuterol 3 mL Neb INHALATION (09:02)
--- NOTE | 2022-06-08 10:03 | PC.SOCIAL ---
Pg 2 IMM Explained to pt Pg 2 IMM. No questions voiced. Provided pt a copy. Initialed, dated, & timed a copy & placed in chart.
[2022-06-08 10:50] LABS: Glucose Point of Care 203 mg/dL (70-110)
[2022-06-08] MEDS: insulin lispro 100 unit/1 mL SUBCUT (10:56)
--- NOTE | 2022-06-08 11:30 | P.DS_ITS ---
Discharge Providers Date of Admission: 06/05/22 19:09 Date of Discharge: June 08, 2022 Attending Provider at Admission: Jeferson Killian MD Attending Provider at Discharge: Moreno Alvarez Primary Care Provider: Ezio Espinoza MD Diagnoses at Discharge Discharge Diagnosis (1) Pneumonia: Status: Acute (2) Acute on chronic respiratory failure with hypoxia: Status: Acute (3) Acute exacerbation of chronic obstructive pulmonary disease: Status: Acute (4) Chronic atrial fibrillation: Status: Acute (5) Hypertension: Status: Acute Qualifiers: Hypertension type: essential hypertension Qualified Code(s): I10 - Essential (primary) hypertension Reason for Visit Reason for Visit: SOB, Weakness, Fever N/V/D Hospital Course Hospital Course Pleasant 71-year-old lady with history of COPD, aortic stenosis, chronic atrial fibrillation, other comorbidities presented with multiple symptoms including shortness of breath, weakness, fever, worsening oxygenation, diarrhea, noted deh ydrated, on presentation with atrial fibrillation with RVR, with worsened hypoxia, with COVID-19 infection. Was continued on metoprolol, Xarelto, received IV Cardizem to help with heart rate control. Was started on remdesivir, Decadron for severe COVID-pneumonia, with also noted superimposed bacterial pneumonia with productive cough, COPD exacerbation, also received treatment with ceftriaxone, azithromycin. Received fluid resuscitation with IV fluid. On presentation also with SHAVONNE, creatinine 1.3, losartan was held while in the hospital. Her condition gradually improved. She weaned down on oxygen requirement from 4 L down to baseline 2. Diarrhea has resolved. Dehydration improved. SHAVONNE improved. Subjectively she has been gradually feeling better. Coughing less. Today she is feeling stronger, feels ready to return home. At discharge metoprolol dose is increased to 50 mg twice daily. Losartan dose is decreased to 50 mg daily. She will complete antibiotic course with cefdinir, azithromycin, and complete additional 2 days short steroid course with prednisone. Physical Exam Const: COMMON NORMALS: patient oriented x3 and alert GENERAL APPEARANCE: cooperative ORIENTATION/CONSCIOUSNESS: Yes awake HENMT: COMMON NORMALS: oropharynx normal Neck/C-Spine: COMMON NORMALS: no JVD Resp: COMMON NORMALS: normal respiratory effort and clear to auscultation bilaterally AUSCULTATION: clear to auscultation bilaterally Cardio: COMMON NORMALS: no JVD, regular rhythm, S1 normal heart sound present, S2 normal heart sound present and No murmurs present (Cardio) RHYTHM: regular rhythm HEART SOUNDS: S1 normal heart sound present and S2 normal heart sound present GI: COMMON NORMALS: Normal to inspection, nondistended, normoactive bowel sounds present, Soft to palpation and non-tender PALPATION: Yes Soft to palpation Extremity: COMMON NORMALS: no joint enlargement and no pedal edema Neuro: COMMON NORMALS: patient oriented x3 and moves all extremities SENSORIUM/ORIENTATION: Yes alert Skin: COMMON NORMALS: no rashes or lesions noted GENERAL SKIN EXAM: no rashes or lesions noted Discharge Data Studies Completed and Pending Completed Studies During Hospitalization Category Date Time Status XR chest 1V portable [id number] Stat Exams 06/05/22 17:16 Completed Pending at discharge Category Date Time Status Blood Culture Stat Lab 06/05/22 19:14 Results Complete Blood Count w/Auto AM LABS Lab 06/09/22 04:00 Ordered Comprehensive Metabolic Panel AM LABS Lab 06/09/22 04:00 Ordered D Dimer AM LABS Lab 06/09/22 04:00 Ordered Respiratory Viral Panel PCR Stat Lab 06/05/22 21:15 Received Sputum Culture and Gram Stain Routine Lab 06/06/22 21:00 Results Radiology Impressions Chest X-Ray 06/05/22 17:16 IMPRESSION: 1. Right upper lobe pneumonia. 2. Otherwise negative examination Laboratory Results WBC 6.2 10^3/uL (4.0-10.0) 06/08/22 06:25 RBC 3.04 10^6/uL (4.1-5.3) L 06/08/22 06:25 Hgb 8.9 g/dL (11.5-15.3) L 06/08/22 06:25 Hct 28.4 % (37.0-47.0) L 06/08/22 06:25 MCV 93.4 fl (81-99) 06/08/22 06:25 MCH 29.3 pg (28.0-34.0) 06/08/22 06:25 MCHC 31.3 g/dL (30.0-36.0) 06/08/22 06:25 RDW 15.9 % (12.1-15.1) H 06/08/22 06:25 Plt Count 308 10^3/cmm (130-400) 06/08/22 06:25 MPV 9.5 fL (7.4-10.4) 06/08/22 06:25 Neut % (Auto) 79.9 % 06/08/22 06:25 Lymph % (Auto) 13.8 % 06/08/22 06:25 [place] % (Auto) 5.2 % 06/08/22 06:25 Eos % (Auto) 0.0 % 06/08/22 06:25 Baso % (Auto) 0.0 % 06/08/22 06:25 Neut # (Auto) 4.91 10^3/uL (1.8-7.7) 06/08/22 06:25 Lymph # (Auto) 0.9 10^3/uL (0.8-4.8) 06/08/22 06:25 [place] # (Auto) 0.3 10^3/uL (0.2-0.9) 06/08/22 06:25 Eos # (Auto) 0.0 10^3/uL (0.0-0.8) 06/08/22 06:25 Baso # (Auto) 0.0 10^3/uL (0.0-0.1) 06/08/22 06:25 Nucleated RBC % (auto) 0 % 06/08/22 06:25 Nucleated RBCs # 0.0 /100WBC 06/08/22 06:25 D-Dimer 1.20 ug/mIFEU (0-0.59) H 06/08/22 06:25 Specimen Type Arterial 06/06/22 04:35 Sample Site Brachial, right 06/06/22 04:35 ABG pH 7.38 (7.35-7.45) 06/06/22 04:35 ABG pCO2 43.1 mmHg (35-45) 06/06/22 04:35 ABG pO2 110.0 mmHg (80.0-100.0) H 06/06/22 04:35 ABG HCO3 25.5 mmol/L (22-26) 06/06/22 04:35 ABG Base Excess 0.1 mmol/L (-2.0-2.0) 06/06/22 04:35 Willian Test N/a 06/06/22 04:35 Hematocrit 47.0 % (37-47) 06/06/22 04:35 O2 Delivery Device Nc 06/06/22 04:35 O2 Liters/Min 4.0 % 06/06/22 04:35 Loss Prevention Agent ID Forrest 06/06/22 04:35 Sodium 140 mmol/L (136-145) 06/08/22 06:25 Potassium 4.2 mmol/L (3.5-5.1) 06/08/22 06:25 Chloride 107 mmol/L (98-107) 06/08/22 06:25 Carbon Dioxide 25 mmol/L (22-29) 06/08/22 06:25 Anion Gap 12.2 (5-19) 06/08/22 06:25 BUN 35 mg/dL (8-23) H 06/08/22 06:25 Creatinine 0.9 mg/dL (0.5-0.9) 06/08/22 06:25 GFR Calculation 62.1 mL/min (90-130) L 06/08/22 06:25 Glucose 118 mg/dL (65-115) H 06/08/22 06:25 POC Glucose 203 mg/dL (70-110) H 06/08/22 10:43 Estimat Average Glucose 120 06/05/22 17:50 Hemoglobin A1c 5.8 % (4.0-6.0) 06/05/22 17:50 Calculated Osmolality 299 mOsm/kg (285-295) H 06/08/22 06:25 Lactate 1.6 mmol/L (0.5-2.2) 06/05/22 17:50 Calcium 8.4 mg/dL (8.5-10.5) L 06/08/22 06:25 Phosphorus 3.3 mg/dL (2.5-4.5) 06/06/22 05:08 Magnesium 1.8 mg/dL (1.7-2.3) 06/06/22 05:08 Total Bilirubin 0.2 mg/dL (0.15-1.2) 06/08/22 06:25 AST 20 U/L (0-32) 06/08/22 06:25 ALT 11 U/L (0-33) 06/08/22 06:25 Alkaline Phosphatase 66 U/L (35-105) 06/08/22 06:25 C-Reactive Protein 57.0 mg/L (0.0-4.9) H 06/06/22 05:08 NT-Pro-B Natriuret Pep 2012 pg/mL (0-125) H 06/05/22 17:50 Total Protein 6.4 g/dL (6.6-8.7) L 06/08/22 06:25 Albumin 2.8 g/dL (3.5-5.2) L 06/08/22 06:25 Globulin 3.6 g/dL (1.3-4.6) 06/08/22 06:25 Procalcitonin 0.23 ng/mL (0-0.5) 06/05/22 17:50 Procalcitonin 0.24 ng/mL (0-0.5) 06/05/22 17:50 TSH 1.26 uIU/mL (0.27-4.20) 06/05/22 17:50 Urine Color Yellow (Yellow) 06/06/22 22:10 Urine Appearance Clear (CLEAR) 06/06/22 22:10 Urine pH 5 (5-7) 06/06/22 22:10 Ur Specific Payne 1.015 (1.005-1.030) 06/06/22 22:10 Urine Protein Neg (Negative) 06/06/22 22:10 Urine Glucose (UA) Norm (Normal) 06/06/22 22:10 Urine Ketones Negative (Negative) 06/06/22 22:10 Urine Blood Neg (Negative) 06/06/22 22:10 Urine Nitrate Negative (Negative) 06/06/22 22:10 Urine Bilirubin Neg (Negative) 06/06/22 22:10 Urine Urobilinogen Neg mg/dL (Negative) 06/06/22 22:10 Ur Leukocyte Esterase Negative (Negative) 06/06/22 22:10 SARS-CoV-2 Ag (Rapid) Positive (Negative) H 06/05/22 17:50 Vitals Last Vital Signs Temp 98.2 F 06/08/22 08:00 Pulse 69 06/08/22 09:15 Resp 17 06/08/22 09:15 BP 135/68 06/08/22 08:00 Pulse Ox 86 L 06/08/22 11:03 O2 Del Method 06/08/22 09:15 O2 Flow Rate 2 06/08/22 11:03 Discharge Plan Discharge Patient Disposition: Home Condition: Stable Prescriptions: New prednisone 50 mg tablet 25 mg PO DAILY 2 Days Qty: 1 0RF albuterol sulfate 90 mcg/actuation HFA aerosol inhaler 2 inh inhalation Q4H Qty: 8.5 2RF levofloxacin 750 mg tablet 750 mg PO Q24H 7 Days Qty: 7 0RF azithromycin 250 mg Tablet 500 mg PO DAILY Qty: 4 0RF cefdinir 300 mg capsule 300 mg PO BID 4 Days Qty: 8 0RF benzonatate 100 mg Capsule 100 mg PO BID PRN (Reason: cough) Qty: 20 2RF Continued Stiolto Respimat 2.5-2.5 mcg/actuation mist 2 puff INHALATION DAILY Qty: 4 6RF amlodipine 5 mg tablet 5 mg PO DAILY Xarelto 20 mg tablet 20 mg PO DAILY Vitamin D3 50 mcg (2,000 unit) Capsule 50 mcg PO DAILY Changed losartan 100 mg tablet 50 mg PO DAILY Qty: 1 0RF metoprolol tartrate 25 mg tablet 50 mg PO BID Qty: 360 0RF Discharge Orders: Discharge Order (Routine); Ordered 06/08/22 Ordered By: Moreno Alvarez Referrals: Ezio Espinoza MD [Primary Care Provider] - 4-7 days Discharge Diet: Cardiac Discharge Activity: Increase activity as tolerated and Oxygen as instructed Patient Instructions: COPD (Chronic Obstructive Pulmonary Disease) (ED), Opioid Safety Activity Restrictions/Additional Instructions: Thank you for visiting the emergency department. You were seen and evaluated for generalized symptoms. Most likely cause of your symptoms is viral in nature. This also flared your underlying lung disease. Please follow-up with your primary care provider. You will be treated with steroids, antibiotics, and albuterol. Please use albuterol inhaler 2 puffs every 4 hours for 24 hours, followed by 2 puffs every 6 hours for 24 hours, followed by 2 puffs every 8 hours for 24 hours then resume normal. Discharge Attestations Time Spent in Discharge Care*: greater than 30 min Quality Metrics Clinical Quality Measures [ No reported AMI, CVA or VTE this stay] Coding Level of Care Code Acute Chg FW DC note Diagnoses Pneumonia J18.9 Acute on chronic respiratory failure with hypoxia J96.21 Acute exacerbation of chronic obstructive pulmonary disease J44.1 Chronic atrial fibrillation I48.20 Hypertension I10 Hypertension type: essential hypertension
--- NOTE | 2022-06-08 13:52 | ECG_ITS ---
[facility] Test Date: 2022-06-08 Pat Name: Senia Head Department: Room: 255 Gender: Female [employer]ter: : 1950 Requested By: Moreno Alvarez Order Number: [id number] Mele MD: Sharyn Gallardo M.D. Measurements Intervals [place] Rate: 69 P: 65 MT: 155 QRS: 24 QRSD: 95 T: 20 QT: 424 QTc: 457 Interpretive Statements SINUS RHYTHM WITH OCCASIONAL SUPRAVENTRICULAR PREMATURE COMPLEXES Compared to ECG 09/13/2019 11:54:18 Ventricular premature complex(es) no longer present Left ventricular hypertrophy no longer present ST (T wave) deviation no longer present Electronically Signed On 06-09-2022 8:35:13 CDT by Sharyn Gallardo M.D. [email or web address]
--- NOTE | 2022-06-08 14:30 | PC.NURSE ---
Discharge Note Patient discharged to home via private vehicle accompanied by son. Discharge instructions reviewed with patient and/or vendor representatives. Mobile pharmacy medications and/or prescriptions provided. Belongings/home medications returned.
[2022-06-11 02:12] LABS: Adenovirus Not Detected (Not Detected); Human Metapneumovirus Not Detected (Not Detected); Human Parainflu Virus 1 Not Detected (Not Detected); Human Parainflu Virus 2 Not Detected (Not Detected); Human Parainflu Virus 3 Not Detected (Not Detected); Human Rsv A Not Detected (Not Detected); Influenza A Not Detected (Not Detected); Influenza B Not Detected (Not Detected); Rhinovirus/Enterovirus Not Detected (Not Detected)
== END 2022-06-08 14:31 | disposition home or self-care (01) | DRG 177 ==
LOC: ER 19:10 → MEDSURG 21:20
PROVIDERS: Emergency Medicine; Admitting Provider Internal Medicine; Emergency Provider Emergency Medicine; PCP Family Medicine; Visit Provider Internal Medicine
DX: U07.1 COVID-19 (principal); J12.82 Pneumonia due to coronavirus disease 2019; J18.9 Pneumonia, unspecified organism; J96.21 Acute and chronic respiratory failure with hypoxia; J44.1 Chronic obstructive pulmonary disease with (acute) exacerbation; I48.20 Chronic atrial fibrillation, unspecified; N17.9 Acute kidney failure, unspecified; J44.0 Chronic obstructive pulmonary disease with (acute) lower respiratory infection; E86.0 Dehydration; E87.6 Hypokalemia; I12.9 Hypertensive chronic kidney disease with stage 1 through stage 4 chronic kidney disease, or unspecified chronic kidney disease; N18.9 Chronic kidney disease, unspecified; D63.1 Anemia in chronic kidney disease; I35.0 Nonrheumatic aortic (valve) stenosis; F17.200 Nicotine dependence, unspecified, uncomplicated; Z79.01 Long term (current) use of anticoagulants
CPT/HCPCS: 36415; 36416; 71045; 80048; 80053; 81003; 82803; 82962; 83036; 83605; 83735; 83880; 84100; 84145; 84443; 85025; 85378; 86140; 86403; 87040; 87070; 87205; 87426; 87449; 87633; 87641; 93005; 94640; 94664; 94760; 96365; 96372; 96375; 99285; J0696; J1815; J2930; J3475; J3490; J7030; J7040; J8540; Q0144

== ENCOUNTER → 2022-06-16 13:03 | Outpatient (BNVA) | payer MEDICARE, SELFPAY | PROVIDERS: PCP Family Medicine; Visit Provider Family Medicine | DX: I10 Essential (primary) hypertension (principal); D50.9 Iron deficiency anemia, unspecified | CPT/HCPCS: 80048; 85025 ==

== ENCOUNTER 2022-09-01 16:09 | Outpatient (CLI) | payer MEDICARE, SELFPAY ==
--- NOTE | 2022-09-01 16:34 | XR_ITS ---
WS: [id number] XR chest 2V* [id number] REASON FOR EXAM: hx of left lower lobe pneumonia, worse 7th rib pain FINDINGS: Compared to the previous examination of 06/05/2022, there is increasing opacity in the right upper lobe in a pattern suggesting volume loss as well as airspace consolidation. On the lateral view there zoey ears to be narrowing of the distal trachea and carinal region. Chest is otherwise unchanged compared to 06/05/2022. XR/XR chest 2V* [id number] IMPRESSION: Increasing opacity in the right upper lung which in part may be due to volume l oss. This would be of concern for possible mediastinal and/or right hilar neopl asm. CT of the chest with contrast is recommended as clinically warranted.
--- NOTE | 2022-09-01 16:34 | XR_ITS ---
WS: [id number] XR ribs LT 2V* [id number] REASON FOR EXAM: pain 6th to 8th rib without known trauma FINDINGS: No rib fracture or other focal rib abnormality is identified. No definite acute left pulmonary parenc hymal or pleural abnormality is identified. XR/XR ribs LT 2V* [id number] IMPRESSION: No left rib abnormality identified.
== END 2022-09-01 16:10 | disposition home or self-care (01) ==
LOC: RAD 16:13
PROVIDERS: PCP Family Medicine; Visit Provider Family Medicine
DX: R07.81 Pleurodynia (principal)
CPT/HCPCS: 71046; 71100

== ENCOUNTER 2022-09-22 05:47 | Outpatient (CLI) | payer MEDICARE, SELFPAY ==
--- NOTE | 2022-09-22 06:30 | CT_ITS ---
WS: [id number] CT CHEST AND ABDOMEN WITH CONTRAST HISTORY: RIGHT upper lobe mass seen on chest radiograph. LEFT upper quadrant pain into back. TECHNIQUE: Axial imaging is performed through the chest and abdomen with IV contrast. Sagittal and co brit reformats. All CT scans at [facility] use at least one of these dose optimization techn iques: automated exposure control; mA and/or kV adjustment per patient size (includes targeted exams where dose is matched to clinical indication); or iterative reconstruction. CONTRAST: Omnipaque 350; 95 mL IV. DLP: 809.79 mGy.cm COMPARISON: Radiograph 08/24/2022. Prior CT abdomen 01/18/2019. Chest CT: Marked pulmonary hyperexpansion. There is a large irregular mass centered at the RIGHT hilum extendin g into the RIGHT upper lobe and along the minor fissure. Irregular mass measures 5.4 x 3.6 cm and ext ends over a length of 2.7 cm. Mass begins at the hilum and is obstructing the RIGHT upper lobe proxim al bronchus. There is pleural tethering a small adjacent satellite nodules with the mass extending in to the hilum. There are additional irregular mass is in the RIGHT upper lobe. There is a cavitary mas s with thick margins at the apex measuring 2.2 x 2.1 cm with adjacent pleural thickening. Additional spiculated irregular mass in the posterior RIGHT upper lobe measures 1.7 x 1.5 x 2.4 cm. Very minimal nodularity involving the pleural LEFT upper lobe. Small subcentimeter precarinal lymph node. No additional mediastinal or hilar lymph nodes other than the large mass centered at the RIGHT hilum. Heart is enlarged. There is marked thickening of the LEFT ventricular wall measuring 2.1 cm. Marked atherosclerosis and ectasia thoracic aorta. Ectatic but not aneurysmal. Focal penetrating ulce r in the distal thoracic aorta is an area of marked intimal thickening measures 1.0 cm. This was not present on prior studies. There is a large destructive soft tissue mass centered at T6 there is soft tissue extension and destr uction of the vertebral body, adjacent rib and the posterior elements. Soft tissue mass measures 5.3 x 5.0 cm and extends over length of 4.4 cm. There is extension into the thecal sac and compression up on the thoracic cord. Soft tissue tumor extends into the T5-6 and T6-7 neural foramina. Soft tissue e xtends paraspinal at the T6 level on the LEFT. Abdomen CT: Mildly heterogeneous liver. Decreased attenuation along the falciform ligament is probably hepatic steatosis. No metastatic lesio ns are identified within the liver. Prior cholecystectomy. Severe pancreatic atrophy. Splenic granulo ramirez. No adrenal mass. Normal size RIGHT kidney. There is mild heterogeneity within the parenchyma of the kidney but no mass. Moderate atrophy LEFT kidney measuring 5.8 cm. This atrophy is new since 08/07/2019. Heavy calcification in aorta and mesenteric arteries. CT/CT chest abdomen w con* IMPRESSION: 1. Large neoplastic mass centered at the RIGHT hilum extending into the RIGHT upper lobe with small adjacent satellite lesions and pleural tagging. Mass is c ausing obstruction of the proximal RIGHT upper lobe bronchus. Mass measures 5.4 x 3.6 cm. Primary pulmonary neoplasm likely. Consider PET CT follow-up. 2. Additional RIGHT upper lobe smaller masses are identified. Mass at the RIGH T apex is cavitary measuring 2.2 x 2.1 cm. Additional mass in the posterior mid RIGHT upper lobe measures 1.7 x 1.5 cm. Metastatic sites likely. 3. Large destructive bone lesion centered at T6 involving the LEFT vertebral b darlin, posterior elements and LEFT rib with cord compression. Contiguous tumor ex tends into the neural foramina on the LEFT at T5-6 and T6-7. 4. New focal penetrating ulcer descending thoracic aorta measures 1.0 cm. Praveen mmend follow up with cardiovascular surgery and. Penetrating ulcer is new since 2019. 5. New severe atrophy LEFT kidney is probably secondary to renal artery athero sclerotic disease. 6. Severe LEFT ventricular hypertrophy. Recommend follow up with cardiology. 7. Prior cholecystectomy. Notified Ezio Espinoza MD at 09/22/2022 8:23 AM.
[2022-09-22 06:48] LABS: Blood Urea Nitrogen 11 mg/dL (8-23)
[2022-09-22] MEDS: iohexol 350 mg/mL 500 mL Btl (per mL) IV (06:54)
== END 2022-09-22 05:48 | disposition home or self-care (01) ==
PROVIDERS: Radiology Neuroradiology; PCP Family Medicine; Visit Provider Family Medicine
DX: R91.8 Other nonspecific abnormal finding of lung field (principal); J44.9 Chronic obstructive pulmonary disease, unspecified; Z90.49 Acquired absence of other specified parts of digestive tract; N26.1 Atrophy of kidney (terminal)
CPT/HCPCS: 71260; 74160; 82565; 84520; Q9967